=== PATIENT | male | born 1950 | race Caucasian/White ===

== ENCOUNTER → 2016-05-25 | Outpatient (CLI) | payer OTHER, MEDICARE | LOC: BHFA 13:00 | PROVIDERS: ATTEND Internal Medicine Cardiovascular Disease | DX: I48.91 Unspecified atrial fibrillation (principal); I71.2 Thoracic aortic aneurysm, without rupture; I10 Essential (primary) hypertension ==

== ENCOUNTER → 2016-06-02 | Outpatient (CLI) | payer OTHER, MEDICARE | LOC: BHFA 09:15 | PROVIDERS: ATTEND Internal Medicine Cardiovascular Disease | DX: I48.91 Unspecified atrial fibrillation (principal) ==

== ENCOUNTER → 2016-07-06 | Outpatient (CLI) | payer OTHER, MEDICARE ==
[~2016-07-06] MED LIST: GADOBUTROL 10 ML VIAL IVP ONE
== END ==
LOC: FIMAGING 19:04
PROVIDERS: ATTEND Psychiatry & Neurology Neurology
DX: R93.7 Abnormal findings on diagnostic imaging of other parts of musculoskeletal system (principal); M51.36 Other intervertebral disc degeneration, lumbar region; M51.37 Other intervertebral disc degeneration, lumbosacral region
CPT/HCPCS: 72158; A9585

== ENCOUNTER → 2017-04-25 | Outpatient (CLI) | payer OTHER, MEDICARE | LOC: BMCIMAGING 14:41 | PROVIDERS: ATTEND Internal Medicine | DX: R22.2 Localized swelling, mass and lump, trunk (principal) ==

== ENCOUNTER 2017-06-07 15:14 | Inpatient (IN) | payer OTHER, MEDICARE ==
--- NOTE | 2017-06-07 15:28 | EDPHY ---
HPI/HX/ROS/PE/MDM Narrative: CHIEF COMPLAINT: Chest pain HISTORY OF PRESENT ILLNESS: The patient is an anticoagulated (Warfarin) 66 y/o male with a history of atrial fibrillation complaining of chest pain and pressure, onset 2 hours ago. For the last several months he has had a cough and sinus congestion; he was prescribed Augmentin in April with improvement of these symptoms. Today he has felt more tired than usual and decided to take a nap. He was startled from his nap and noticed an increased heart rate since. He also developed intermittent left-sided chest pain. This chest pain and pressure occurs every 30 minutes. There is also a pinched sensation on the left side of his lower sternum that lasts around 10 seconds when his chest pain occurs. This pinching sensation feels similar to a prior episode of pleurisy. Since his symptoms began , he has also felt lightheaded while moving around. Last cardiac stress test was 2 years ago, INR is typically 2.0-2.4. Admits to receiving an influenza vaccination this year. Denies taking Aspirin. Denies discomfort breathing, pain while breathing, shortness of breath. Denies history of stents, CABG, CHF. Denies history of hypercholesteremia, diabetes, familial history of DE's. No fever, chills, shortness of breath, palpitations, vomiting, diarrhea, urinary complaints, headache, lightheadedness. REVIEW OF SYSTEMS: Aside from elements discussed in the HPI, a comprehensive 10-point review of systems was reviewed and is negative. PAST MEDICAL HISTORY: Atrial fibrillation (rate controlled), basal cell carcinoma, bilateral Achilles repair, pneumonia SOCIAL HISTORY: Lives in [place], , retired, former smoker VITAL SIGNS: Reviewed by me. HR upper 80s on monitor, irregular. GENERAL: Well-developed, well-nourished, resting comfortably in no respiratory distress. HEENT: Atraumatic. Eyes: No icterus, no injection. Mouth: moist mucous membranes. No erythema or lesions. Neck: supple with no adenopathy. LUNGS: Clear to auscultation bilaterally, no wheezes, rhonchi or rales. No chest wall pain to palpation. CARDIAC: Irregularly irregular, split s2, no rubs, murmurs or gallops. ABDOMEN: Soft, nontender, nondistended, bowel sounds normal. BACK: No CVA tenderness. EXTREMITIES: No trauma. No edema. Range of motion is normal throughout. NEURO: Alert and oriented, grossly nonfocal. SKIN: Warm and dry, no rash. PSYCHIATRIC: Normal mentation, no agitation. Portions of this note were transcribed by a medical management trainer. I personally performed a history, physical exam, medical decision making, and confirmed accuracy of information the transcribed note. ED Course: The patient is an anticoagulated (Warfarin) 66 y/o male with a history of atrial fibrillation presenting with chest pain and pressure, onset 2 hours ago. His physical exam is unremarkable. Labs, EKG, and chest x-ray ordered. 324mg PO Aspirin administered. 1530: 12-LEAD EKG: Please see the full report in [facility]. My interpretation: Atrial fibrillation (rate of 85) with non-specific ST, T wave changes that are similar to prior EKG's. 1640: Patient's chest x-ray reveals a possible bronchitis, there are no other acute cardiopulmonary findings. 1700: Patient's laboratory findings are unremarkable. 1709: Spoke with Dr. Campos, broke worker, regarding this patient. He will be admitted for observation. Last ECHO was 1 year ago, and documented increasing aortic root size. 1720: Reassessed patient and discussed imaging and laboratory findings. I have also discussed plan for admission; he is comfortable with this plan. 1750: Spoke with hospitalist service, Dr. Kendall accepts admission of this patient. MDM: Diff dx considered included atrial fibrillation, acs, CHF, mitral regurgitation , bronchitis, influenza, pulmonary emboli, infectious cause. - Data Points Imaging Results: Impression: Question minimal bronchitis. No other findings for acute cardiopulmonary abnormality. Dictated By: Dereje Moore MD Imaging: I viewed and interpreted images myself Laboratory Results: Laboratory Results 06/08/17 03:54 06/08/17 03:54 Medications Given: Discontinued Medications Albuterol (Proventil Neb) 3 ml IH QID KAYLEE Stop: 12/04/17 20:59 Last Admin: 06/07/17 22:03 Dose: 3 ml Allopurinol (Allopurinol) 300 mg PO DAILY KAYLEE Stop: 12/05/17 08:59 Last Admin: 06/09/17 09:34 Dose: 300 mg Aspirin (Aspirin) 324 mg PO EDNOW ONE Stop: 06/07/17 15:41 Last Admin: 06/07/17 15:55 Dose: 324 mg Digoxin (Lanoxin) 250 mcg PO DAILY KAYLEE Stop: 12/05/17 08:59 Last Admin: 06/08/17 07:51 Dose: 250 mcg Diltiazem HCl (Cardizem Er Q24hr) 180 mg PO DAILY KAYLEE Stop: 12/05/17 08:59 Last Admin: 06/09/17 09:34 Dose: 180 mg Levothyroxine Sodium (Synthroid) 175 mcg PO DAILY KAYLEE Stop: 12/05/17 08:59 Last Admin: 06/09/17 09:33 Dose: 175 mcg Metoprolol Tartrate (Lopressor) 25 mg PO BID KAYLEE Stop: 12/05/17 20:59 Last Admin: 06/08/17 21:17 Dose: 25 mg Metoprolol Tartrate (Lopressor) 12.5 mg PO BID KAYLEE Stop: 12/06/17 08:59 Last Admin: 06/09/17 09:33 Dose: 12.5 mg Multivitamins/Minerals (Thera M Plus Tablet) 1 each PO DAILY KAYLEE Stop: 12/05/17 08:59 Last Admin: 06/09/17 09:33 Dose: 1 each Prednisone (Prednisone) 40 mg PO DAILY KAYLEE Stop: 12/04/17 18:59 Last Admin: 06/09/17 09:34 Dose: 40 mg Warfarin Sodium (Coumadin) 2.5 mg PO TUSA@08 KAYLEE Stop: 12/06/17 07:59 Last Admin: 06/09/17 09:34 Dose: 2.5 mg Warfarin Sodium (Coumadin) 5 mg PO DAILY@0800 KAYLEE Stop: 12/05/17 07:59 Last Admin: 06/09/17 09:35 Dose: 5 mg Warfarin Sodium (Coumadin) 2.5 mg PO SUTUSA KAYLEE Stop: 12/06/17 10:29 Last Admin: 06/09/17 11:27 Dose: 2.5 mg General Time Seen by Provider: 06/07/17 15:26 Initial Vital Signs: Initial Vital Signs Temperature (C) 37.1 C 06/07/17 15:21 Heart Rate 88 06/07/17 15:21 Respiratory Rate 18 06/07/17 15:21 Blood Pressure 138/87 H 06/07/17 15:21 O2 Sat (%) 94 06/07/17 15:21 O2 Delivery Mode Room Air O2 (L/minute) 1 Allergies/Adverse Reactions: No Known Allergies Allergy (Unverified 06/07/17 15:20) Home Medications: Medication Instructions Recorded Diltiazem HCl [Diltiazem 24Hr Cd] 180 mg PO DAILY 07/10/15 Levothyroxine [Synthroid 175 mcg 175 mcg PO DAILY 07/10/15 (*)] Multivitamin with Minerals 1 tab PO DAILY 07/10/15 [Multiple Vitamin] Warfarin Sodium [Coumadin 5MG (*)] 5 mg PO DAILY 07/10/15 Allopurinol [Allopurinol 300 MG 300 mg PO DAILY 06/07/17 (RX)] Ibuprofen [Motrin (*)] 400 mg PO DAILY PRN 06/07/17 Albuterol [Ventolin Hfa Inhaler] 200 puffs IH Q4 PRN #1 mdi 06/09/17 Metoprolol Tartrate [Lopressor 25 12.5 mg PO BID #30 tab 06/09/17 mg (*)] Warfarin Sodium [Coumadin 2.5MG 2.5 mg PO SUTUSA #1 tab 06/09/17 (*)] predniSONE 40 mg PO DAILY #6 tablet 06/09/17 Departure - Departure Disposition: [facility] Inpatient Acute Clinical Impression: Palpitations, Bronchitis Chest pain Qualifiers: Chest pain type: other chest pain Qualified Code(s): R07.89 - Other chest pain ; R07.8 - Other chest pain Atrial fibrillation Qualifiers: Atrial fibrillation type: persistent Qualified Code(s): I48.1 - Persistent atrial fibrillation Report Scribed for: Akila Langston Report Scribed by: Alissa Gong Date of Report: 06/07/17 Time of Report: 15:27
--- NOTE | 2017-06-07 15:32 | CPEKG ---
Heart Rate: 85 RR Interval: 706 QRSD Interval: 96 QT Interval: 356 QTC Interval: 424 QRS [place]: -27 T Wave [place]: 231 EKG Severity - ABNORMAL ECG - EKG Impression: ATRIAL FIBRILLATION EKG Impression: BORDERLINE LEFT AXIS DEVIATION Electronically Signed By: Akila Langston 07-Jun-2017 22:41:24
[2017-06-07] MEDS ORDERED: ASPIRIN 81 MG CHEWABLE TAB PO ONE (15:40)
[2017-06-07 15:54] LABS: PLATELET COUNT 297 10^3/uL (150-400)
[2017-06-07 16:03] LABS: INR 2.01 (0.83-1.16); PROTIME(PATIENT) 22.8 SEC (12.0-15.0)
[2017-06-07] MEDS ORDERED: ACETAMINOPHEN 325 MG TAB PO PRN (18:41)
[2017-06-07] MEDS ORDERED: ALBUTEROL 3 ML DEYVIAL IH PRN (18:41)
[2017-06-07] MEDS ORDERED: ONDANSETRON 4 MG/2 ML VIAL IVP PRN (18:41)
[2017-06-07] MEDS ORDERED: ONDANSETRON DISINTEGRATING 4 MG TAB PO PRN (18:41)
--- NOTE | 2017-06-07 19:11 | PDGENHP ---
History and Physical - Chief Complaint CP, SOB - History of Present Illness This is a 66 yo male with hx of Afib who had SOB and CP this afternoon. CP was substernal, it did not radiate anywhere. He has had a persistent cough x months but may have gotten worse in the last day. He has felt somewhat fatigued. He does not have any VAUGHN. He currently does not have CP or SOB. He was previously on diuretics but was taken off them. He does take them intermittently per his discretion. He has leg edema but he reports that they are actually much better than in the past. He denies fever, active cp, SOB, palpitations, or worsened leg edema. A CXR personally reviewed shows peribronchial thickening. It did not show e/o fluid overload Troponin was unremarkable EKG shows Afib and slight st depression in leads III - He was given Aspirin in the E.D. Dr. Campos with cardiology was consulted by the E.D. CBC/BMP unremarkable INR 2.01 PMHx: Afib, chronic AC, basal cell carcinoma, bilateral achilles repair, obesity SocHx: previous tobacco user, denies ETOH. FmHx: NC Data: per above History Information - Allergies/Home Medication List Allergies/Adverse Reactions: No Known Allergies Allergy (Unverified 06/07/17 15:20) Home Medications: Digoxin [Digitek] 250 mcg PO DAILY 07/10/15 [Last Taken 06/07/17 08:00] Diltiazem HCl [Diltiazem 24Hr Cd] 180 mg PO DAILY 07/10/15 [Last Taken 06/07/17 08:00] Levothyroxine [Synthroid 175 mcg (*)] 175 mcg PO DAILY 07/10/15 [Last Taken 05/24 08:00] Multivitamin with Minerals [Multiple Vitamin] 1 tab PO DAILY 07/10/15 [Last Taken 06/07/17 08:00] Warfarin Sodium [Coumadin 5MG (*)] 5 mg PO DAILY 07/10/15 [Last Taken 06/07/17 08:00] Allopurinol [Allopurinol 300 MG (RX)] 300 mg PO DAILY 06/07/17 [Last Taken 06/07 08:00] Ibuprofen [Motrin (*)] 400 mg PO DAILY PRN 06/07/17 [Last Taken 06/04/17] Warfarin Sodium [Coumadin 5MG (*)] 2.5 mg PO TUSA@08 06/07/17 [Last Taken ] I have personally reviewed and updated: medical history, social history - Social History Smoking Status: Former smoker Review of Systems Review of Systems: ROS: 10pt was reviewed & negative except for what was stated in HPI & below Physical Exam Physical Exam: Temp Pulse Resp BP Pulse Ox 37.1 C 73 18 127/74 H 96 06/07/17 15:21 06/07/17 18:30 06/07/17 18:30 06/07/17 18:30 06/07/17 18:30 Constitutional: no apparent distress Eyes: PERRL Ears, Nose, Mouth, Throat: moist mucous membranes, hearing normal Cardiovascular: regular rate and rhythym, edema (trace LE edema), No JVD Respiratory: reduced air movement, expiratory wheeze Gastrointestinal: normoactive bowel sounds, soft, non-tender abdomen Skin: warm Musculoskeletal: full muscle strength Neurologic: AAOx3, sensation intact bilaterally Psychiatric: interacting appropriately, not anxious, not encephalopathic, thought process linear Lymph, Heme, Immunologic: No petechiae Lab Data & Imaging Review 06/07/17 15:44 06/07/17 15:44 WBC 8.05 10^3/uL (3.80-9.50) 06/07/17 15:44 RBC 5.11 10^6/uL (4.40-6.38) 06/07/17 15:44 Hgb 16.1 g/dL (13.7-17.5) 06/07/17 15:44 Hct 46.1 % (40.0-51.0) 06/07/17 15:44 MCV 90.2 fL (81.5-99.8) 06/07/17 15:44 MCH 31.5 pg (27.9-34.1) 06/07/17 15:44 MCHC 34.9 g/dL (32.4-36.7) 06/07/17 15:44 RDW 12.3 % (11.5-15.2) 06/07/17 15:44 Plt Count 297 10^3/uL (150-400) 06/07/17 15:44 MPV 8.3 fL (8.7-11.7) L 06/07/17 15:44 Neut % (Auto) 56.7 % (39.3-74.2) 06/07/17 15:44 Lymph % (Auto) 30.3 % (15.0-45.0) 06/07/17 15:44 [place] % (Auto) 9.3 % (4.5-13.0) 06/07/17 15:44 Eos % (Auto) 2.4 % (0.6-7.6) 06/07/17 15:44 Baso % (Auto) 0.6 % (0.3-1.7) 06/07/17 15:44 Nucleat RBC Rel Count 0.0 % (0.0-0.2) 06/07/17 15:44 Absolute Neuts (auto) 4.56 10^3/uL (1.70-6.50) 06/07/17 15:44 Absolute Lymphs (auto) 2.44 10^3/uL (1.00-3.00) 06/07/17 15:44 Absolute Monos (auto) 0.75 10^3/uL (0.30-0.80) 06/07/17 15:44 Absolute Eos (auto) 0.19 10^3/uL (0.03-0.40) 06/07/17 15:44 Absolute Basos (auto) 0.05 10^3/uL (0.02-0.10) 06/07/17 15:44 Absolute Nucleated RBC 0.00 10^3/uL (0-0.01) 06/07/17 15:44 Immature Gran % 0.7 % (0.0-1.1) 06/07/17 15:44 Immature Gran # 0.06 10^3/uL (0.00-0.10) 06/07/17 15:44 PT 22.8 SEC (12.0-15.0) H 06/07/17 15:44 INR 2.01 (0.83-1.16) H 06/07/17 15:44 APTT 38.8 SEC (23.0-38.0) H 06/07/17 15:44 D-Dimer < 0.27 ug/mLFEU (0.00-0.50) 06/07/17 15:44 Sodium 143 mEq/L (135-145) 06/07/17 15:44 Potassium 4.5 mEq/L (3.5-5.2) 06/07/17 15:44 Chloride 105 mEq/L (97-110) 06/07/17 15:44 Carbon Dioxide 23 mEq/l (22-31) 06/07/17 15:44 Anion Gap 15 mEq/L (8-16) 06/07/17 15:44 BUN 11 mg/dL (7-23) 06/07/17 15:44 Creatinine 0.8 mg/dL (0.7-1.3) 06/07/17 15:44 Estimated GFR > 60 06/07/17 15:44 Glucose 99 mg/dL (70-100) 06/07/17 15:44 Calcium 9.3 mg/dL (8.5-10.4) 06/07/17 15:44 Troponin I < 0.012 ng/mL (0.000-0.034) 06/07/17 15:44 Lipase 61 IU/L (23-300) 06/07/17 15:44 Assessment & Plan Assessment: #Chest pain with abnormal EKG #Afib #Pedal Edema #Likely acute bronchitis #chronic AC #obesity Plan: admit for cardiac r/o, serial trops, EKG, TTE Cards to consult cont AC Will start trial of Steroids given likely bronchitis which may be contributing to his chest pain. Scheduled nebs SCD's Full Code
[2017-06-07] MEDS: predniSONE 20 MG TAB PO SCH (20:18)
[2017-06-07] MEDS ORDERED: ALBUTEROL 3 ML DEYVIAL IH SCH (21:00)
[2017-06-08 04:26] LABS: PLATELET COUNT 311 10^3/uL (150-400)
[2017-06-08 04:35] LABS: INR 1.95 (0.83-1.16); PROTIME(PATIENT) 22.3 SEC (12.0-15.0)
[2017-06-08] MEDS: WARFARIN SODIUM 5 MG TAB PO SCH (07:50)
[2017-06-08] MEDS: LEVOTHYROXINE 175 MCG TAB PO SCH (07:50)
[2017-06-08] MEDS: DILTIAZEM CD 180 MG CAP PO SCH (07:50)
--- NOTE | 2017-06-08 08:51 | CPEKG ---
Heart Rate: 80 RR Interval: 750 QRSD Interval: 98 QT Interval: 368 QTC Interval: 425 QRS [place]: -40 T Wave [place]: 235 EKG Severity - ABNORMAL ECG - EKG Impression: ATRIAL FIBRILLATION EKG Impression: LEFT ANTERIOR FASCICULAR BLOCK EKG Impression: NONSPECIFIC REPOL ABNORMALITY, DIFFUSE LEADS Electronically Signed By: Abdiaziz Jansen 09-Jun-2017 09:01:29
[2017-06-08] MEDS ORDERED: DIGOXIN 250 MCG TAB PO SCH (09:00)
[2017-06-08] MEDS: MULTIVITAMINS W-MINERALS 1 EACH TAB PO SCH (09:02)
[2017-06-08] MEDS: ALLOPURINOL 300 MG TAB PO SCH (09:02)
[2017-06-08] MEDS: predniSONE 20 MG TAB PO SCH (09:03)
--- NOTE | 2017-06-08 11:35 | ECHO ---
[email or web address] [address] [address] Main: [phone] Fax: Transthoracic Echocardiogram Name: RAJI WELLS MR#: [id number] Study Date: 06/08/2017 Study Time: 09:40 AM Date of : 1950 Age: 66 year(s) Height: 188 cm (74 in.) Weight: 129.28 kg (285 lb.) BSA: 2.53 m2 Gender: Male Examination: Echo Indication: Chest Pain, Shortness of breath Image Quality: Contrast: Requested by: Ab Kendall BP: 136 mmHg/88 mmHg Heart Rate: Rhythm: Atrial fibrillation Indication: Chest Pain, Shortness of breath Procedure Staff Veterinary Toxicologist: Artem Monreal [facility] Reading Physician: Isaac Louie Requesting Provider: Conclusions: Normal size left ventricle. Mild concentric LV hypertrophy. Normal global systolic LV function. EF is 61 %. No regional wall motion abnormality. Normal RV function. The left atrium is moderately dilated. The right atrium is mildly dilated. Mildly dilated ascending aorta measuring 3.9 cm. No pericardial effusion. Measurements: Chambers Valvular Assessment AV/MV Valvular Assessment TV/PV Normal Normal Normal Name Value Range Name Value Range Name Value Range Ao Maude (MM): 3.8 cm (2.2 cm-3.7 AV Vmax: 0.94 m/s (1 m/s-1.7 PV Vmax: 0.86 m/s (0.6 m/s-0.9 cm) m/s) m/s) IVSd (2D): 1.2 cm (0.6 cm-1.1 AV maxP mmHg ( - ) PV PGmax: 3 mmHg ( - ) cm) LVOT Vmax: 0.78 m/s (0.7 m/s-1.1 LVDd (2D): 5.3 cm (4.2 cm-5.9 m/s) cm) MV E Vmax: 0.93 m/s ( - ) LVDs (2D): 3.6 cm (2.1 cm-4 cm) LVPWd (2D): 1.3 cm (0.6 cm-1 cm) LVEF (2D): 61 (>=54 %) Continued Measurements: Chambers Valvular Assessment AV/MV Patient: RAJI WELLS Study Date: 06/08/2017 Page 1 of 2 09:40 AM Name Value Name Value LADs Lon.9 cm MV E/E' Septal: 11.70 LA Area: 29.5 cm2 MV E/E' Lateral: 19.50 LA Volume: 111 ml LA Volume Index: 43.9 ml/m2 Additional Vessels Name Value Ao Ascendin.9 cm Findings: Left Ventricle: Normal size left ventricle. Mild concentric LV hypertrophy. Normal global systolic LV function. EF is 61 %. No regional wall motion abnormality. Diastolic dysfunction is present. . Right Ventricle: Normal size right ventricle. Normal RV function. Left Atrium: The left atrium is moderately dilated. Right Atrium: The right atrium is mildly dilated. Mitral Valve: The mitral valve is normal in appearance and function. Mild mitral valve regurgitation is present. Aortic Valve: The aortic valve is normal in appearance and function. The aortic valve is tri-leaflet. No aortic valve stenosis is present. There is no aortic valve regurgitation. Tricuspid Valve: The tricuspid valve is normal in appearance and function. Pulmonic Valve: The pulmonic valve is normal in appearance and function. Aorta: The aorta is normal. Normal size aortic root measuring 3.8 cm. Mildly dilated ascending aorta measuring 3.9 cm. Pericardium: No pericardial effusion. (No Signature Object) Patient: RAJI WELLS Study Date: 06/08/2017 Page 2 of 2 09:40 AM [id number]
[2017-06-08] MEDS ORDERED: REGADENOSON 0.4 MG/5 ML SYR IVP ONE (12:11)
--- NOTE | 2017-06-08 14:31 | ASMTCMCOM ---
CM Note CM Note Notes: 06/08/2017 Case Management Note Reviewed chart. There are no case management d/c needs identified d/t pt age, marital status and activity levels prior to admission. There are no PT or OT evals ordered at this time. Case Management d/c poc: home independent with follow up as directed. Case Management available if needs change. Date Signed: 06/08/2017 02:31 PM Electronically Signed By:Nancie Ferraro RN
--- NOTE | 2017-06-08 15:21 | CPR ---
[f rep st] NONINVASIVE CARDIAC PROCEDURE REPORT PROCEDURE: Exercise treadmill exercise treadmill, myocardial perfusion imaging study. INDICATION FOR PROCEDURE: Atrial fibrillation with questionable arrhythmias with exertion, chest pressure, evaluation for ischemia. PRE: After obtaining informed consent and ensuring patient's n.p.o. status of caffeine for greater than 12 hours, patient was placed on electrocardiogram. Initial EKG shows atrial fibrillation, noted mild inverted T-waves in inferior lateral leads. Patient denies any chest pain, shortness of breath, or symptoms suggesting of ischemia. Initial blood pressure was 128/70, saturation 94% on room air. STRESS: The patient was placed on exercise treadmill, following standard Charli protocol with the following findings: 1. Patient exercised 5 minutes. 2. 5.5 METS. 3. Patient obtained a heart rate of 177 beats per minute, which was 116 MPHR. 4. Patient had no chest pain or symptoms of ischemia during exercise. 5. The patient was noted to have [address] depression in inferior lateral leads. 6. No other ectopy was noted, but the patient did have rapid rate increase with any exertion, appearing that his atrial fibrillation is not well rate controlled. 7. SpO2 was greater than 90% 8. BP at rest was 128/70, at peak is 156/70. 9. Test was stopped due to maximum effort. 10. [place] treadmill score of -10, placing patient at intermediate risk. RECOVERY: Due to patient with such a rapid rate increase with his atrial fibrillation, concerns that potentially stress testing alone would not induce ischemia, testing was converted to Lexiscan injection, in which he was given Lexiscan followed by nuclear isotope. Patient reports no symptoms. No significant EKG changes. Within 5 minutes of injection, patient's EKG returned back to baseline. Again, no arrhythmias noted. Patient remained asymptomatic of symptoms suggestive of ischemia. IMPRESSION: A 66-year-old male with history of atrial fibrillation with questionable arrhythmias with exertion, reporting possible bradycardia. He was also reporting occasional episode of chest pressure, undergoing exercise treadmill testing, noticing significant quick rapid atrial fibrillation with rapid ventricular response with injection. Did note [address] depression in inferior lateral leads, horizontal. Positive for ischemia by stress testing guidelines. [place] Treadmill Score also -10, placing him at intermediate risk. Potential results of of exercise treadmill testing may be less specific for ischemia, due to underlying abnormal electrocardiogram. Within 5 minutes of rest and recovery, heart rate decreased back to baseline, EKG returned to normal. Patient's vital signs are stable. Patient was transferred to Nuclear Medicine for post stress imaging. Results of testing went over with Dr. Nazario, and discussed with Dr. Ayala of Hospital Services. /[id number]/[id number] [email or web address]
--- NOTE | 2017-06-08 18:56 | HOSPPROG ---
Hospitalist Progress Note Assessment/Plan: DIAGNOSES: -chest pain, resolved, atypical, rule out for myocardial infarction -atrial fibrillation with highly labile pulse rates, with a dramatic orthostatic component to his pulse but no demonstrated significant bradycardia so far -chronic stable bipedal leg edema likely right heart failure without shortness of breath or change in the patient's exertion tolerance I reviewed the patient's symptoms presenting picture, examination, lab x-ray echocardiogram and perfusion imaging data with doctors Liban and Mansi. This patient's primary issue here is uncontrolled rapid atrial fibrillation. He appears to have a orthostatic component to this as he has a heart rate of 80s in bed 125 comes up on the heart rate immediately upon getting to chair or standing. He immediately goes back to the 80s lying down. This is probably due to digoxin being effective in the supine position and ineffective in the upright positions, which is sometimes seen with that medication. The diltiazem is probably not doing anything to control his heart rate as when he is standing at rest he is quite tachycardic. He does not appear to have any new heart failure or new ischemic disease. PLANS: -discontinue digoxin -add metoprolol and follow his heart rate along with orthostatic responses -consider whether to continue or discontinue diltiazem once he is rate controlled better with metoprolol on board -he could potentially be considered for an AFib ablation if we continue have heart rate control issues -will need to continue monitoring heart rates on gyro mechanic here in the hospital until he we achieve adequate rate control, so will need to change to inpatient status SUBJECTIVE: Patient gives a history to me of having no further pains here in the hospital nothing else that sounds at all anginal We have noticed that his heart rate fluctuate quite a lot with heart rate in the 80s supine and 125 average standing but no blood pressure changes OBJECTIVE Vitals reviewed: Heart rates fluctuating in the 80s supine 125 average standing all irregular from AFib, no blood pressure changes with standing otherwise unremarkable vitals [employer], my review: AFib with heart rate changes as reviewed above Exam: alert oriented skin warm dry color ok resps not labored lungs clear BSs heart regular abd soft nondistended nontender, bowel sounds present limbs warm, notable by pedal edema which the patient says is chronic for him iv site ok Laboratory data: Troponins are normal, other lab data numbers stable Echocardiogram with good ejection fraction and biatrial enlargement, no significant valvular changes, I reviewed the study with while in detail today Myocardial perfusion imaging study after Lexiscan stress, no evidence of perfusion defects; I reviewed with Dr. Larsen 1 E the images today Charli protocol treadmill stress test was also done and this shows no chest pain no ischemic EKG changes and normal heart rate response is in atrial fibrillation Objective: Vital Signs Temp Pulse Resp BP Pulse Ox 36.6 C 79 14 119/82 H 94 06/08/17 10:43 06/08/17 16:06 06/08/17 16:06 06/08/17 16:06 06/08/17 16:06 Laboratory Results 06/08/17 03:54 06/08/17 03:54 06/07/17 06/08/17 06/09/17 06:59 06:59 06:59 Intake Total 250 1480 Balance 250 1480 PT 22.3 SEC (12.0-15.0) H 06/08/17 03:54 INR 1.95 (0.83-1.16) H 06/08/17 03:54 - Time Spent With Patient Time Spent with Patient: greater than 35 minutes Time Spent with Patient: Greater than 35 minutes spent on this patients care, greater than 50% of time spent counseling, educating, and coordinating care regarding the above mentioned plan. ICD10 Worksheet Patient Problems: Problems Problem Status Onset Chest pain Acute
--- NOTE | 2017-06-08 19:25 | PDMN ---
Medical Necessity Medical necessity: C/M review: est. > 2 MN LOS for eval and TX of acute chest pain, resolved, atypical, acute and persistent atrial fibrillation with highly labile pulse rates with a dramatic orthostatic component to his pulse but no significant bradycardia so far, requiring echocardiogram, 06/08/2017 myocardial perfusion scan, Charli protocol treadmill stress test, ongoing discontinue digoxin, add metoprolol, consider additional medication regimen changed or titration pending patient vital signs, medical condition, cardiac monitoring, comorbid chronic stable bipedal leg edema per 06/08/2017 Hospitalist progress note.
[2017-06-08] MEDS ORDERED: METOPROLOL TARTRATE 25 MG TAB PO SCH (21:00)
--- NOTE | 2017-06-08 22:08 | GCON ---
[f rep st] CONSULTATION INDICATION FOR CARDIOLOGY CONSULTATION: Episode of chest pressure last evening , appears inadequate rate control for chronic atrial fibrillation. HISTORY OF PRESENT ILLNESS: This patient is a 66-year-old male who is known to our practice. 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 Lc Hurd. He has significant past history that includes chronic atrial fibrillation, mildly dilated ascending aorta, mild mitral regurgitation, obesity, sleep apnea (CPAP) , and hypothyroidism. He informs me that he has been developing a persistent cough for the last month but has gotten worse. He feels that he has had bronchitis going on. He does report that he had been on antibiotics in April but feels that it has not cleared up. He reported yesterday, while sitting, he developed a left anterior lower chest pressure; he also felt mildly short of breath. Denying any radiation, did feel that this worsened when he lay back in his chair or coughed. This had concerned him, and he came to the emergency department for further evaluation. Upon arrival, he did undergo electrocardiogram, initial EKG showing atrial fibrillation, rate controlled at 85 beats per minute, left axis deviation, with noted inverted T-waves in inferolateral leads. Initial laboratory studies were done, showing troponin less than 0.012. He was noted to be therapeutic on his warfarin therapy with an INR of 2.0. His D-dimer was less than 0.27. He does admit that he has been feeling fatigued for the last few months, since April with his bronchitis. Denies any bleeding issues being on warfarin therapy, he does report that when he gets up and walks, he can occasionally feel his heart racing. Denies any lightheadedness, near syncope or syncopal events. Denies any symptoms suggestive of TIA or CVA. Reports no bleeding issues. Reports no fevers or chills. He was admitted to the PCU for overnight observation. It was noted that during his time in PCU, when he is sitting, his heart rate is usually running in the 80s and 90s, but with any kind of exertional activity, his heart rate jumps up to 130 BPM. He did undergo echocardiogram this morning, showing normal LV size with mild concentric LVH, normal LV global systolic function with EF of 61%, no regional wall motion abnormalities, normal RV function, LA was moderately dilated, RA was mildly dilated, ascending aorta measured at 3.9 cm. He was noted to have mild MR. He has had repeated troponin levels that have all been negative. He reports no further episodes of chest pain. He did undergo ETT-MPI study; during his stress testing, it was noted that his heart rate did increase significantly quickly on the treadmill. He had no symptoms of ischemia. It was also noted on treadmill testing that he did have horizontal ST depression with fast heart rate, Luque treadmill score of -10, but potentially thought these tests may be skewed due to his abnormal underlying resting electrocardiogram. Myocardial perfusion imaging was also done which showed no signs of ischemia or infarction. Due to his atrial fibrillation, he was unable to have an ejection fraction figured. At the current time, the patient reports he has had no further episodes of chest pain or pressure since hospitalization. He does admit that he has noted mild peripheral edema in his lower extremities, which he does report comes on every couple weeks, for which he uses a p.r.n. dosage of Lasix. PAST MEDICAL HISTORY: Significant for chronic atrial fibrillation. The patient reports he had been on amiodarone in the past and had adverse reaction and discontinued it. Mild mitral regurgitation. Dilated ascending aorta. Obesity. KATHARINA with CPAP usage. Hypothyroidism. Essential hypertension. Subdural hematoma PAST SURGICAL HISTORY: Achilles tendon repair, corie holes for subdural hematoma, tendon release FAMILY HISTORY: Noncontributory. SOCIAL HISTORY: He is retired. He reports previous smoking, quitting over 20 years ago. Denies any EtOH use. He has . He denies any illicit drug use. ALLERGIES: None known. HOME MEDICATIONS: Warfarin 2.5 mg p.o. every Sunday and Sunday. Warfarin 5 mg p.o. daily. Ibuprofen 400 mg p.o. daily p.r.n. Multivitamins 1 tablet p.o. daily. Synthroid 175 mcg p.o. daily. Diltiazem 180 mg p.o. daily. Digoxin 250 mcg p.o. daily. Allopurinol 300 mg p.o. daily. The patient does report also p.r.n. dosage of Lasix which is unknown at this time. REVIEW OF SYSTEMS: A 10-point review done on this patient all negative, except as mentioned above. PHYSICAL EXAMINATION: GENERAL APPEARANCE: Medium build, moderately obese, male. He is alert and oriented to person, place, time, and situation. Appears to be under no acute distress at this time. CURRENT VITAL SIGNS: Blood pressure 119/82, heart rate 79, atrial fibrillation on the monitor. Respirations 14. Saturating 94% on room air. HEENT: Head is normocephalic. Lips and tongue are pink and moist with no signs of cyanosis. Conjunctivae pink. NECK: Trachea is midline, +2 carotid pulses bilateral. No auscultated bruits. No jugular vein distention. RESPIRATORY: Mild rhonchi noted with initial breaths, does clear with cough, no rales or wheezing noted. CARDIAC: Regular rate, irregular rhythm, S1, S2, no S3, S4, gallops, rubs, or murmurs noted. ABDOMEN: Soft, obese, nontender, bowel sounds x4 quadrants, no organomegaly palpable. SKIN: [place], warm, dry, no cyanosis, no clubbing, +1 peripheral edema bilateral lower extremities to knees. VASCULAR: +2 carotids bilateral, +2 radials bilateral, +1 dorsal pedal and posterior tibial pulses bilateral. LABORATORY STUDIES: This morning WBC 7.46 hemoglobin 16.9, hematocrit 49.5, platelet count 311. INR 1.95. Sodium 144, potassium 5.4, chloride 105, CO2 24 , BUN 11, creatinine 0.8, glucose 134, calcium 9.8. The patient has been noted to have D-dimer drawn in the emergency department, which was less than 0.027. He has had 3 troponin levels that have been drawn, which have all been less than 0.012. Magnesium level drawn last night was 1.9, lipase was 61. The patient has tested negative for both flu A and flu B. His digoxin level this morning was 0.9. STUDIES: Echocardiogram as mentioned above. ETT-MPI study as mentioned above. Initial electrocardiogram as mentioned above. Chest x-ray done in the emergency department, questionable minimal bronchitis, no other acute cardiopulmonary findings. ASSESSMENT AND PLAN: 1. Chest pressure: The patient reports one episode of chest pressure last evening prior to admission, lower left rib cage, no radiation, no associated symptoms of nausea and vomiting or diaphoresis. Symptoms are somewhat positional. Negative troponins x3. Normal left ventricular systolic function with no wall motion abnormalities on echocardiogram. MPI study showing no signs of ischemia or infarction. The patient's symptoms do not seem specifically cardiac in nature. Evaluate for possible other causes. 2. Chronic atrial fibrillation: The patient is noted to have chronic atrial fibrillation. When he is resting, he is fairly well rate controlled, but with any exertion, he does increase his heart rate significantly. The patient reports a long history of digoxin use, and on diltiazem for the last 2 years, feeling fairly well rate controlled. I do think, after discussing with Dr. Nazario, that digoxin potentially has poor rate control with any exertion, and we will attempt to discontinue his digoxin at this time and place him on low- dose metoprolol tartrate. Ideally, if we can titrate this up and he is able to tolerate, potentially finding we have adequate rate control, potentially we can also discharge his diltiazem. We will have him get a TSH level in the morning. Continue to monitor. The patient has been resumed on his home dose of warfarin therapy. Yesterday was therapeutic, mildly dropped to INR of 1.95 today , will repeat INR in a.m. 3. Dilated ascending aorta: Recent echocardiogram showed mild dilated ascending aorta at 3.9. In comparison to previous echocardiograms, this is an improvement, which in 2014 measured 4.5 cm. Adequate blood pressure control: The patient will continue following up with serial echocardiograms for evaluation. 4. Hypertension: Blood pressure appears to be well controlled on current home medications, continue to. 5. Valvular heart disease: The patient is noted to have mild mitral regurgitation. This will be monitored by serial echocardiograms. 6. Mild peripheral edema: The patient reports this happens occasionally. He is not taking any diuretics in the last few months.. Encouraged elevation of the lower extremities. Will have him get a BMP in morning, potentially may need to add Lasix. Potentially his atrial fibrillation with rapid ventricular response with exertion has potentially induced some of this. 7. Hypothyroidism: The patient has been resumed on Synthroid, will repeat a TSH level in the morning. 8. Likely acute bronchitis: Hospital Service has started him on prednisone, which potentially could be also contributing to his atrial fibrillation with rapid ventricular response. Medications as above. Thank you for this consultation. We will be glad to follow along with you. /[id number]/MODL MTDD
[2017-06-09 04:08] VITALS: O2SAT 98
[2017-06-09 04:44] LABS: INR 1.89 (0.83-1.16); PROTIME(PATIENT) 21.8 SEC (12.0-15.0)
[2017-06-09] MEDS ORDERED: WARFARIN SODIUM 5 MG TAB PO SCH (08:00)
[2017-06-09 08:23] VITALS: RESP 16; TEMP 98.1
[2017-06-09] MEDS ORDERED: METOPROLOL TARTRATE 25 MG TAB PO SCH (09:00)
[2017-06-09] MEDS: LEVOTHYROXINE 175 MCG TAB PO SCH (09:33)
[2017-06-09] MEDS: MULTIVITAMINS W-MINERALS 1 EACH TAB PO SCH (09:33)
[2017-06-09] MEDS: ALLOPURINOL 300 MG TAB PO SCH (09:34)
[2017-06-09] MEDS: predniSONE 20 MG TAB PO SCH (09:34)
[2017-06-09] MEDS: DILTIAZEM CD 180 MG CAP PO SCH (09:34)
[2017-06-09] MEDS: WARFARIN SODIUM 5 MG TAB PO SCH (09:35)
[2017-06-09 10:04] VITALS: BP 125/69; PULSE 64
[2017-06-09] MEDS ORDERED: WARFARIN SODIUM 2.5 MG TAB PO SCH (10:30)
--- NOTE | 2017-06-09 12:06 | PDCARPN ---
Cardiology Progress Note Chief Complaint: Patient reports he would like to go home. Assessment/Plan: Assessment: 66-year-old male with known history that includes chronic atrial fibrillation , valvular heart disease , mildly dilated ascending aorta , mild mitral regurgitation, obesity, sleep apnea (CPAP), and hypothyroidism. Admitted on 05/2017 for chest pressure pain. Negative troponins x3. Echocardiogram done on 06/08/2017 showing normal LV size, mild LVH, normal LV systolic function with no regional wall motion abnormalities, EF 61%, diastolic dysfunction, normal RV size and function, LA moderately dilated, RA mildly dilated, mild MR,, mildly dilated ascending aorta at 3.9 cm. Underwent ETT/MPI on 06/08/17, patient was in atrial fibrillation , noted to have abnormal resting EKG with T-wave inversions in inferior lateral leads with worsened exertion. Rapid heart rate increase with exertion. MPI study showing no signs of ischemia, infarction. Patient reports no further episodes of chest pressure or pain since hospitalization. Yesterday, concerns with how well his atrial fibrillation rate is controlled with exertion on digoxin and diltiazem. Digoxin discontinued, and in metoprolol tartrate started , continue on diltiazem. Today: Patient reports no chest pressure or pain. Denies of any palpitations, lightheadedness, near-syncope, or syncopal events. Laboratory studies today showing INR subtherapeutic at 1.89, normal electrolyte and renal function. Noted to have mildly elevated BNP at 315. Overnight telemetry showing atrial fibrillation , with better rate control, did note when patient was deep sleeping , of occasional rate dropping into high 40s, with noted 1 episode of 2.2 second pause. Plan: 1. Chest pain: Patient has had no further episodes of chest pain since hospital admission. Patient describing pain in left lower ribcage , no radiation, not associated with nausea or, shortness of breath, or diaphoresis. MPI study showing no signs of ischemia or infarction, echocardiogram showing normal LV function with no wall motion abnormality. No further workup necessary for cardiac ischemia. INRs was therapeutic on admission, negative D- dimer. 2. Chronic atrial fibrillation: Patient noted to have normal resting heart rate, but with any exertion, heart rate can increase up to 130 BPM. Discontinue digoxin and started on metoprolol tartrate at 25 mg p. o. twice daily. Noted to have occasional lower heart rate in high 40s, with episode of of 2.2 second pauses. Orthostatic blood pressures today show better rate control between sitting and standing, and patient up in walking with better rate control. At this time, I would like to decrease his metoprolol dosage to 12.5 mg p. o. twice daily. Potentially as the digoxin gets out of his system, this will need to be increased. Ultimately goal would be to titrate beta- jenny up high enough to also discontinue diltiazem. Patient would like to go home. I have asked our office to call him and set him up for a 24 hour Holter monitor to be done later this week , for further evaluation of his rate control with his atrial fibrillation. INR was noted to be subtherapeutic today at 1.89. Have increased his warfarin dosage to 7.5 mg every Sunday, Sunday, Sunday. 5 mg on the remaining days. Have scheduled him to follow up with warfarin Clinic as an outpatient on Sunday. 3. Mild peripheral edema: Patient reports this occasionally happens. Noted to have mildly elevated BNP today. Potentially this is increased with his in adequate rate control for his atrial fibrillation. Have asked patient monitor weight daily, and peripheral edema. If necessary, consideration of starting him on diuretics as an outpatient. 4. Hypertension: Blood pressure is well controlled on current medication regime. 5. Dilated ascending aorta: Recent echocardiogram shows improvement since last echocardiogram in 2014 which measured ascending aorta at 4.5 cm. Blood pressure control, continue serial echocardiograms for evaluation as an outpatient. 6. Hypothyroidism: Patient has been resumed on home Synthroid level. TSH done this morning showing within normal limits. 7. Likely acute bronchitis: Hospital Services has started patient on prednisone. Patient reports improvement in symptoms. Further recommendations per hospital services. Patient will potentially be discharged home today. I have asked our office to call him on Sunday, schedule him to undergo 24 hour Holter monitor early next week , with a follow-up visit in our office in the next 7-10 days. 06/09/17 12:03 Subjective: Patient reporting no chest pain or pressure. Reports no shortness of breath, denies of any palpitations, lightheadedness, near-syncope, or syncopal events. Reviewed/Discussed With: hospitalist (Dr Sanchez), other (Dr Branch) Objective: Vital Signs (8 Hrs) Temp Pulse Pulse Pulse Pulse Resp BP 06/09/17 08:21 36.7 C 52 L 16 93/50 L 06/09/17 08:00 79 92 64 06/09/17 04:07 36.6 C 80 17 128/65 H BP BP BP Pulse Ox 06/09/17 08:21 98 06/09/17 08:00 119/81 H 124/92 H 125/69 H 06/09/17 04:07 98 Intake/Output (24 Hrs) 06/08/17 06/09/17 06/10/17 05:59 05:59 05:59 Intake Total 250 Balance 250 Intake: Oral (ml) 250 Other: Number of Voids Toilet 1 Result Diagrams: 06/08/17 03:54 06/09/17 03:44 - Physical Exam Constitutional: no apparent distress, obese Ears, Nose, Mouth, Throat: moist mucous membranes Cardiovascular: no murmurs, no rubs, no gallops, irregularly irregular (Regular rate, regular rhythm, atrial fibrillation.), pulses symmetric bilat, No jugular vein distention, No carotid bruit Peripheral Pulses: 1+: dorsalis-pedis (R), dorsalis-pedis (L), 2+: carotid (R), carotid (L) Respiratory: other (Slight expiratory wheeze comma but no rhonchi, rales noted. No accessary muscle use, no intercostal muscle retraction noted.) Gastrointestinal: normoactive bowel sounds Skin: no rashes, warm, No no edema (Trace to +1 peripheral edema bilateral lower extremities to knees) Neurologic: AAOx3 Psychiatric: cooperative, interactive, following commands ICD10 Worksheet Patient Problems: Problems Problem Status Onset Chest pain Acute
--- NOTE | 2017-06-10 15:35 | ASDISCHSUM ---
Discharge Information Plan Status:Home with No Needs Medically Cleared to Leave:06/08/2017 Discharge Date:06/09/2017 11:30 AM CM D/C Disposition: ADT D/C Disposition:Home, Routine, Self-Care Projected Discharge Date:06/09/2017 12:00 AM Transportation at D/C:Family Discharge Delay Reason: Follow-Up Date:06/09/2017 12:00 AM Discharge Slot: Final Diagnosis:CP, Chronic Afib, Peripheral edema, HTN Placement Information Patient Contact Information Contact Name:RAGHAV Relationship: Address:[address] [place] [address] Work Phone: Patricia:DEREK Sorenson Phone: [facility]/Zip Code:[place] [address] Email: Financial Information Financial Class: Primary Plan Desc:MEDICARE OUTPATIENT Primary Plan Number:[id number] Secondary Plan Desc:[employer]/MDR SUPPLEMENT Secondary Plan Number:[id number] Assessment Information [facility] CM Progress Note CM Note CM Note Notes: 06/08/2017 Case Management Note Reviewed chart. There are no case management d/c needs identified d/t pt age, marital status and activity levels prior to admission. There are no PT or OT evals ordered at this time. Case Management d/c poc: home independent with follow up as directed. Case Management available if needs change. Date Signed: 06/08/2017 02:31 PM Electronically Signed By:Nancie Ferraro RN Case Management Discharge Plan Note Case Management Discharge Discharge Order Complete? Answers: Yes Patient to Obtain Answers: Independently Medications Transportation Arranged Answers: Family/Friends Transport will Pick (Date 06/09/2017 12:00 AM & Time) Family Notified Answers: Yes Notes: to transport Discharge Comments Notes: Patient discharged. heart work-up medication adjustments. No discharge needs. Date Signed: 06/10/2017 03:34 PM Electronically Signed By:Keyona Murrieta LCSW Intervention Information Intervention Type:*KULKARNI-Signed Date of Service:06/08/2017 09:53 AM Patient Type:Observation Staff Member:Elyssa Smith Hours: Discipline: Severity: Comment: Intervention Type:*Occurence 72 Date of Service:06/07/2017 06:41 PM Patient Type:Inpatient Staff Member:ROSALIO Sims, [facility] Hours:0.25 Discipline: Severity:1 (0-1 Hours) Comment:[facility] 72 for 06/07/2017 18:41 to 06/08/2017 19:08 as patient discharged 06/09/3017 10:34 (< 2 MN LOS after patient admission status changed from observation to inpatient) .
== END 2017-06-09 11:30 | disposition home or self-care (01) | DRG 310 ==
LOC: F2W 18:35 → OBSVTOIN 06-08 19:08
PROVIDERS: ADMIT Family Medicine; ATTEND Internal Medicine
DX: I48.2 Chronic atrial fibrillation (principal); Z79.01 Long term (current) use of anticoagulants; R07.9 Chest pain, unspecified; J20.9 Acute bronchitis, unspecified; I10 Essential (primary) hypertension; I34.0 Nonrheumatic mitral (valve) insufficiency; R60.0 Localized edema; I77.811 Abdominal aortic ectasia; E66.09 Other obesity due to excess calories; Z68.36 Body mass index [BMI] 36.0-36.9, adult; E03.9 Hypothyroidism, unspecified; Z87.891 Personal history of nicotine dependence
CPT/HCPCS: A9500; G0378; J2785; J7512; J7613

== ENCOUNTER → 2017-08-11 | Outpatient (CLI) | payer OTHER, MEDICARE | LOC: FCPNEURO 20:00 | PROVIDERS: ATTEND Psychiatry & Neurology Sleep Medicine | DX: G47.33 Obstructive sleep apnea (adult) (pediatric) (principal) ==

== ENCOUNTER 2017-11-07 15:03 | Emergency (ER) | payer OTHER, MEDICARE ==
--- NOTE | 2017-11-07 15:22 | EDPHY ---
H & P Stated Complaint: Sharp, intermittent LUQ abd x several days Time Seen by Provider: 11/07/17 15:22 - Personal History Current Tetanus Diphtheria and Acellular Pertussis (TDAP): Unsure - Medical/Surgical History Hx Asthma: No Hx Chronic Respiratory Disease: No Hx Diabetes: No Hx Cardiac Disease: Yes Hx Renal Disease: No Hx Cirrhosis: No Hx Alcoholism: No Hx HIV/AIDS: No Hx Splenectomy or Spleen Trauma: No Other PMH: Afib, basel cell removed, MARLEE achilles repair, PNA, subdural hematomas, 2 month coma, cerebral shunt - Social History Smoking Status: Former smoker Constitutional: Initial Vital Signs Temperature (C) 37.1 C 11/07/17 15:09 Heart Rate 79 11/07/17 15:09 Respiratory Rate 18 11/07/17 15:09 Blood Pressure 101/69 11/07/17 15:09 O2 Sat (%) 96 11/07/17 15:09 O2 Delivery Mode Room Air Allergies/Adverse Reactions: No Known Allergies Allergy (Verified 11/07/17 15:07) Home Medications: Medication Instructions Recorded Diltiazem HCl [Diltiazem 24Hr Cd] 180 mg PO DAILY 07/10/15 Levothyroxine [Synthroid 175 mcg 175 mcg PO DAILY 07/10/15 (*)] Warfarin Sodium [Coumadin 5MG (*)] 5 mg PO DAILY 07/10/15 Allopurinol [Allopurinol 300 MG 300 mg PO DAILY 06/07/17 (RX)] Metoprolol Tartrate [Lopressor 25 12.5 mg PO BID #30 tab 06/09/17 mg (*)] Warfarin Sodium [Coumadin 2.5MG 2.5 mg PO SUTUSA #1 tab 06/09/17 (*)] Potassium Cl [Klor-Con] 10 meq PO DAILY 11/07/17 Medical Decision Making - Diagnostics Imaging Results: Imaging Impressions Abdomen CT 11/07/17 15:27 Impression: 1. Adenopathy and splenic lesions as detailed above; findings are suspicious for lymphoma. 2. See above report for additional findings. Results called and discussed with Kali Adorno MD on 11/07/2017 at 17:25. Imaging: Discussed imaging studies w/ scallop raker Radiologist, I viewed and interpreted images myself ED Course/Re-evaluation: CHIEF COMPLAINT: Left upper quadrant pain HISTORY OF PRESENT ILLNESS: The patient is an anticoagulated (Warfarin) 66 y/o male with a history of atrial fibrillation and subdural hematomas complaining of an intermittent 10-20 second stabbing left rib pain onset several days ago. Prior to the onset of pain , he was bending over and thought he tweaked his back. In addition to the pain, he is also having night sweats and has lost 50 pounds in the last 2 weeks. Due to these symptoms in addition with his atrial fibrillation, he decided to present to the emergency department. Denies headache, chest pain, shortness of breath, urinary or bowel complaints, numbness, fever, Followed by Dr. Hurd, signal integrity engineer, for atrial fibrillation. REVIEW OF SYSTEMS: A 10 point review of systems was performed and is negative with the exception of the elements mentioned in the history of present illness. PHYSICAL EXAM: HR, BP, O2 Sat, RR. Temp noted General Appearance: Alert, well hydrated, appropriate, and non-toxic appearing. Head: Atraumatic without scalp tenderness or obvious injury Eyes: Pupils equal, round, reactive to light and accommodation, EOMI, no trauma , no injection. Ears: Clear bilaterally, no perforation, normal landmarks Nose: Atraumatic, no rhinorrhea, clear. Throat: There is no erythema or exudates, no lesions, normal tonsils, mucus membranes moist. Neck: Supple, nontender, no lymphadenopathy. Respiratory: No retractions, no distress, no wheezes, and no accessory muscle use. Lungs are clear to auscultation bilaterally. Cardiovascular: Regular rate and rhythm, no murmurs, rubs, or gallops. Bilateral carotid, radial, dorsalis pedis, and posterior tibial pulses intact. Good capillary refill all extremities. Gastrointestinal: LUQ tenderness over the spleen, minor left flank tenderness. Abdomen is soft, non-distended, no masses, no rebound, no guarding, no peritoneal signs. Musculoskeletal: Normal active ROM of all extremities, atraumatic. Neurological: Alert, appropriate, and interactive. The patient has normal DTRs and non-focal cranial nerves, motor, sensory, and cerebellar exam. Skin: No rashes, good turgor, no nodules on palpation. Past medical history: Afib, Basel cell removed, pneumonia, subdural hematomas, 2 month coma, sleep apnea Past surgical history: Bilateral Achilles repair, cerebral shunt Family history: Denies Social history: Lives in [place], , retired DIAGNOSTICS/PROCEDURES/CRITICAL CARE TIME: EKG: The 12 lead EKG was interpreted by myself as atrial fibrillation with a v- rate of 72-107, left axis deviation, nonspecific T wave abnormalities in the diffuse leads. See hard copy and/or "tracemaster" electronic copy for interpretation. Abdominopelvic CT: Adenopathy and splenic lesions; findings are suspicious for lymphoma. DIFFERENTIAL DIAGNOSIS: The differential diagnosis for the patient's abdominal pain included but was not limited to appendicitis, cholecystitis, hernias, testicular torsion, gastritis, and urinary tract infection. MEDICAL DECISION MAKING: The patient is an anticoagulated (Warfarin) 66 y/o male with a history of atrial fibrillation and subdural hematomas presenting with an intermittent, 10- 20 second, stabbing left rib pain onset several days ago. On exam he has LUQ tenderness over the spleen and minor left flank tenderness. Labs, EKG, and abdominopelvic CT ordered. 1521: I interpreted EKG as atrial fibrillation with a v-rate of 72-107. 1725: I spoke with Dr. De La Torre, radiologist, regarding this patient. The patient has adenopathy and splenic lesions. His labs are unremarkable. 1755: Consulted with Dr. Tolentino, oncologist, regarding this patient. He will see this patient in his office tomorrow, the patient does not need to be admitted. The patient will need to stop taking Coumadin as he will need a biopsy. 1800: Reassessed patient and discussed imaging and laboratory findings. I have advised him to follow up with Dr. Tolentino and to stop taking Coumadin. Return precautions provided; patient is comfortable with this plan. - Data Points Laboratory Results: Laboratory Results 11/07/17 15:28 11/07/17 15:28 11/07/17 11/07/17 11/07/17 15:34 15:28 15:28 WBC 8.96 10^3/uL 10^3/uL (3.80-9.50) RBC 4.96 10^6/uL 10^6/uL (4.40-6.38) Hgb 15.0 g/dL g/dL (13.7-17.5) POC Hgb 15.6 gm/dL gm/dL (13.7-17.5) Hct 44.3 % % (40.0-51.0) POC Hct 46 % % (40-51) MCV 89.3 fL fL (81.5-99.8) MCH 30.2 pg pg (27.9-34.1) MCHC 33.9 g/dL g/dL (32.4-36.7) RDW 12.9 % % (11.5-15.2) Plt Count 264 10^3/uL 10^3/uL (150-400) MPV 8.7 fL fL (8.7-11.7) Neut % (Auto) 60.4 % % (39.3-74.2) Lymph % (Auto) 25.9 % % (15.0-45.0) [place] % (Auto) 10.7 % % (4.5-13.0) Eos % (Auto) 2.5 % % (0.6-7.6) Baso % (Auto) 0.3 % % (0.3-1.7) Nucleat RBC Rel Count 0.0 % % (0.0-0.2) Absolute Neuts (auto) 5.41 10^3/uL 10^3/uL (1.70-6.50) Absolute Lymphs (auto) 2.32 10^3/uL 10^3/uL (1.00-3.00) Absolute Monos (auto) 0.96 10^3/uL H 10^3/uL (0.30-0.80) Absolute Eos (auto) 0.22 10^3/uL 10^3/uL (0.03-0.40) Absolute Basos (auto) 0.03 10^3/uL 10^3/uL (0.02-0.10) Absolute Nucleated RBC 0.00 10^3/uL 10^3/uL (0-0.01) Immature Gran % 0.2 % % (0.0-1.1) Immature Gran # 0.02 10^3/uL 10^3/uL (0.00-0.10) POC Sodium 140 mEq/L mEq/L (135-145) Sodium 138 mEq/L mEq/L (135-145) POC Potassium 4.3 mEq/L mEq/L (3.3-5.0) Potassium 4.6 mEq/L mEq/L (3.3-5.0) POC Chloride 103 mEq/L mEq/L (97-110) Chloride 105 mEq/L mEq/L (97-110) Carbon Dioxide 23 mEq/l mEq/l (22-31) Anion Gap 10 mEq/L mEq/L (8-16) POC BUN 14 mg/dL mg/dL (7-23) BUN 14 mg/dL mg/dL (7-23) Creatinine 0.8 mg/dL mg/dL (0.7-1.3) POC Creatinine 0.8 mg/dL mg/dL (0.7-1.3) Estimated GFR > 60 Glucose 89 mg/dL mg/dL (70-100) POC Glucose 93 mg/dL mg/dL (70-100) Calcium 9.2 mg/dL mg/dL (8.5-10.4) Total Bilirubin 0.7 mg/dL mg/dL (0.1-1.4) Conjugated Bilirubin 0.4 mg/dL mg/dL (0.0-0.5) Unconjugated Bilirubin 0.3 mg/dL mg/dL (0.0-1.1) AST 27 IU/L IU/L (17-59) ALT 33 IU/L IU/L (21-72) Alkaline Phosphatase 99 IU/L IU/L (38-126) Total Protein 6.4 g/dL g/dL (6.3-8.2) Albumin 3.7 g/dL g/dL (3.5-5.0) Lipase 43 IU/L IU/L (23-300) Medications Given: Discontinued Medications Sodium Chloride (Ns) 1,000 mls @ 0 mls/hr IV EDNOW ONE; Wide Open PRN Reason: Protocol Stop: 11/07/17 15:28 Last Admin: 11/07/17 15:42 Dose: 1,000 mls Point of Care Test Results: Chemistry 11/07/17 15:34 POC Sodium 140 mEq/L mEq/L (135-145) POC Potassium 4.3 mEq/L mEq/L (3.3-5.0) POC Chloride 103 mEq/L mEq/L (97-110) POC BUN 14 mg/dL mg/dL (7-23) POC Creatinine 0.8 mg/dL mg/dL (0.7-1.3) POC Glucose 93 mg/dL mg/dL (70-100) ISTAT H&H 11/07/17 15:34 POC Hgb 15.6 gm/dL gm/dL (13.7-17.5) POC Hct 46 % % (40-51) Departure - Departure Disposition: Home, Routine, Self-Care Clinical Impression: Adenopathy, Splenic lesion Abdominal pain Qualifiers: Abdominal location: left upper quadrant Qualified Code(s): R10.12 - Left upper quadrant pain Condition: Good Instructions: Acute Abdominal Pain (ED) Additional Instructions: 1. Stop taking Coumadin. 2. Follow up with Dr. Tolentino, oncologist, tomorrow regarding your CT findings. If you do not hear from them by tomorrow morning, please call them. 3. Return to the emergency department immediately for high fever, severe headache or neck pain, difficulty breathing, abdominal pain, rash or other worsening of condition. Referrals: Gui White MD [Primary Care Provider] - As per Instructions Ahmet Tolentino MD [Medical Doctor] - As per Instructions Report Scribed for: Kali Adorno Report Scribed by: Alissa Gong Date of Report: 11/07/17 Time of Report: 15:24
[2017-11-07] MEDS ORDERED: NS 1,000 ML IV ONE (15:27)
[2017-11-07 15:38] LABS: PLATELET COUNT 264 10^3/uL (150-400)
[2017-11-07] MEDS ORDERED: IOPAMIDOL (ISOVUE-300) 100 ML BTL ONE (16:14)
[2017-11-07 18:13] VITALS: BP 110/67
[2017-11-07 18:58] LABS: INR 2.71 (0.83-1.16); PROTIME(PATIENT) 28.7 SEC (12.0-15.0)
--- NOTE | 2017-11-08 16:19 | CPEKG ---
Heart Rate: 89 RR Interval: 674 QRSD Interval: 94 QT Interval: 376 QTC Interval: 458 QRS [place]: -40 T Wave [place]: -37 EKG Severity - ABNORMAL ECG - EKG Impression: ATRIAL FIBRILLATION, V-RATE 72-107 EKG Impression: LEFT AXIS DEVIATION EKG Impression: NONSPECIFIC T ABNORMALITIES, DIFFUSE LEADS Electronically Signed By: Ahmet Gregory 09-Nov-2017 22:19:22
== END 2017-11-07 18:18 | disposition home or self-care (01) ==
DX: D73.89 Other diseases of spleen (principal); R59.9 Enlarged lymph nodes, unspecified; E86.9 Volume depletion, unspecified; Z79.01 Long term (current) use of anticoagulants; Z87.891 Personal history of nicotine dependence
CPT/HCPCS: 74177; 93005; 96360; 99285; Q9967; 82435-PO; 82565-PO; 82947-PO; 84132-PO; 84295-PO; 84520-PO; 85014-PO

== ENCOUNTER 2017-11-29 09:43 | Day surgery (SDC) | payer OTHER, MEDICARE ==
[2017-11-29] MEDS ORDERED: PROTAMINE SULFATE 50 MG/5 ML VIAL IVP PRN (10:17)
[2017-11-29] MEDS ORDERED: ALTEPLASE 2 MG VIAL IVP PRN (10:17)
[2017-11-29] MEDS ORDERED: HEPARIN 10,000 UNIT/10 ML MDV (1,000 UNIT/ML) IVP PRN (10:17)
[2017-11-29] MEDS ORDERED: ceFAZolin 2 GM/DEXTROSE 100 ML IV ONE (10:17)
[2017-11-29] MEDS ORDERED: NALOXONE HCL 0.4 MG/ML INJ IVP PRN (10:17)
[2017-11-29] MEDS ORDERED: MIDAZOLAM 2 MG/2 ML VIAL IVP PRN (10:17)
[2017-11-29] MEDS ORDERED: MEPERIDINE 25 MG/ML SYR IVP PRN (10:17)
[2017-11-29] MEDS ORDERED: GLUCAGON HCL 1 MG VIAL IVP PRN (10:17)
[2017-11-29] MEDS ORDERED: FLUMAZENIL 0.5 MG/5 ML MDV IVP PRN (10:17)
[2017-11-29] MEDS ORDERED: fentaNYL 100 MCG/2 ML INJ IVP PRN (10:17)
[2017-11-29] MEDS ORDERED: NS 1,000 ML IV SCH (10:30)
--- NOTE | 2017-11-29 11:26 | PDRADPRE ---
Radiology History & Physical Indication for procedure: cancer (Possible Lymphoma) Significant medical history: heart disease (Chronic Atrial Fibrillation) Home medications: Diltiazem HCl [Diltiazem 24Hr Cd] 180 mg PO DAILY 07/10/15 [Last Taken 06/07/17 08:00] Levothyroxine [Synthroid 175 mcg (*)] 175 mcg PO DAILY 07/10/15 [Last Taken 05/24 08:00] Warfarin Sodium [Coumadin 5MG (*)] 5 mg PO DAILY 07/10/15 [Last Taken 11/23/17] Allopurinol [Allopurinol 300 MG (RX)] 300 mg PO DAILY 06/07/17 [Last Taken 06/07 08:00] Potassium Cl [Klor-Con] 10 meq PO DAILY 11/07/17 [Last Taken Unknown] Allergies/Adverse Reactions: No Known Allergies Allergy (Verified 11/23/17 17:01) Mental status: A&Ox3 Heart exam: other (Irregular rhythm c/w afib) Lungs exam: clear to auscultation Mallampati Score: Class 2
--- NOTE | 2017-11-29 11:27 | PDPROPOC ---
Sedation Plan of Care Sedation Plan of Care: vital signs stable, mental status noted, patient educated of risks, benefits, alternatives, patient can tolerate sedation ASA Classification: ASA 2 Planned drugs: fentanyl, midazolam Mallampati Score: Class 2 Mallampati Reference Image: Patient passed 3-3-2 rule?: Yes
[2017-11-29 11:34] LABS: INR 1.21 (0.83-1.16); PROTIME(PATIENT) 15.5 SEC (12.0-15.0)
[2017-11-29] MEDS ORDERED: MIDAZOLAM 2 MG/2 ML VIAL ONE (11:36)
[2017-11-29] MEDS ORDERED: fentaNYL 100 MCG/2 ML INJ ONE (11:36)
--- NOTE | 2017-11-29 12:47 | PDRADPN ---
Radiology Procedure Note Date of Procedure: 11/29/17 Radiologist: Rafael Jay Anesthesia: IV Sedation (versed/fentanyl), Local (Specify) (Lidocaine) Pre-op Diagnosis: Periaortic mass Post-op Diagnosis: same Indication: R/O Lymphoma Procedure: CT biopsy left paravertebral mass Finding(s): Left paravertebral mass at L1-2 localized Inf/Abcess present in the surg proc area at time of surgery?: No Depth: Organ Space (Left paravertebral) EBL: Minimal Complications: None Specimen(s): 18 ga core biopsied x 3 in [place] and x3 in formalyn
[2017-11-29 13:41] VITALS: BP 121/83
== END 2017-11-29 14:05 | disposition home or self-care (01) ==
LOC: FIMAGING 09:43
PROVIDERS: ATTEND Internal Medicine Hematology & Oncology
PROC: 0KBG3ZX Excision of Left Trunk Muscle, Percutaneous Approach, Diagnostic (ICD-10-PCS; principal; 2017-11-29 12:56)
DX: C83.30 Diffuse large B-cell lymphoma, unspecified site (principal)
CPT/HCPCS: 88184-90; 88185-91; J2250; J3010

== ENCOUNTER → 2017-12-04 | Day surgery (SDC) | payer OTHER, MEDICARE | END | disposition home or self-care (01) | LOC: FIMAGING 12:49 | PROVIDERS: ATTEND Internal Medicine Hematology & Oncology | PROC: 02HV33Z Insertion of Infusion Device into Superior Vena Cava, Percutaneous Approach (ICD-10-PCS; principal; 2017-12-04) | DX: C85.10 Unspecified B-cell lymphoma, unspecified site (principal) | CPT/HCPCS: 36569; 77001; C1751 ==

== ENCOUNTER → 2018-05-09 | Outpatient (CLI) | payer OTHER, MEDICARE | LOC: BMCIMAGING 12:53 | PROVIDERS: ATTEND Family Medicine | DX: M25.562 Pain in left knee (principal); M25.462 Effusion, left knee ==